=== PATIENT | female | born 1995 | race Caucasian/White ===

== ENCOUNTER 2020-11-07 20:41 | Observation (INO) | payer MEDICAID ==
[2020-11-07] MEDS ORDERED: ZIPRASIDONE 20 MG INJ IM ONE ×2 (21:00→21:03)
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
[2020-11-07 21:08] LABS: BASOPHILS % (AUTO) 1 % (0-1); EOSINOPHILS % (AUTO) 3 % (1-7); LYMPHOCYTES % (AUTO) 29 % (22-44); MD NO; MEAN CORPUSCULAR HEMOGLOBIN 26.8 pg (27.0-34.8); MEAN CORPUSCULAR HGB CONC 33.1 g/dL (32.4-35.8); MEAN PLATELET VOLUME 8.2 fL (7.4-10.4); MONOCYTES % (AUTO) 6 % (2-9); NEUTROPHILS % (AUTO) 61 % (42-75); PLATELET COUNT 249 x10^3/uL (130-400); RED BLOOD COUNT 5.76 x10^6/uL (3.82-5.3); RED CELL DISTRIBUTION WIDTH 14.2 % (9.6-15.2)
[2020-11-07 21:15] LABS: HCG UR SG 1.027 (1.003-1.030)
[2020-11-07 21:16] LABS: ALBUMIN 4.2 g/dL (3.4-5.0); ANION GAP 7 mmol/L (5-15); CALCIUM 9.4 mg/dL (8.5-10.1); CHLORIDE 110 mmol/L (98-107); CREATININE 0.88 mg/dL (0.55-1.02); SALICYLATE LEVEL 1.7 mg/dL (2.8-20.0)
[2020-11-07 21:27] LABS: AMPHETAMINE SCREEN, URINE Negative (Negative); BARBITURATE SCREEN, URINE Negative (Negative); BENZODIAZEPINE SCREEN, URINE Negative (Negative); CANNABINOID SCREEN, URINE Positive (Negative); COCAINE SCREEN, URINE Negative (Negative); METHADONE SCREEN, URINE Negative (Negative); OPIATE SCREEN, URINE Negative (Negative)
[2020-11-07] MEDS ORDERED: PLEASE ENTER HEIGHT AND WEIGHT MC SCH (21:30)
[2020-11-07] MEDS ORDERED: PLEASE ENTER ALLERGIES MC SCH (21:30)
--- NOTE | 2020-11-07 21:30 | NUR ---
[place] and juice provided.
--- NOTE | 2020-11-07 22:02 | NUR ---
Patient sleeping in [facility]. Respirations even and unlabored. Room secured and sitter outside.
--- NOTE | 2020-11-07 22:36 | NUR ---
[facility] called to look into patient.
--- NOTE | 2020-11-07 23:44 | NUR ---
report from elisabet womack Patient roused to voice. Alert/oriented. Denies si/hi/external stimuli ERP to bedside to eval Patient still energetic/loud. but re-directable
--- NOTE | 2020-11-08 00:29 | NUR ---
[facility] UNABLE TO TAKE PATIENTS INSURANCE. PACKET FAXED TO [employer], [employer], AND [facility] PATIENT HAS MEDICAID HPN.
--- NOTE | 2020-11-08 01:08 | NUR ---
With reassessment -patient fast asleep even and unlabored chest rise noted sitter within direct line of site
--- NOTE | 2020-11-08 05:05 | NUR ---
Report from YOHAN Najera. Pt sleeping in view of sitter, visible chest rise and fall. 1 bag of belongings in psych locker.
--- NOTE | 2020-11-08 06:46 | NUR ---
Recived report from Rhonda ALMANZAR. Pt resting in bed with eyes closed, symetrical chest rise and fall, NADN. Sitter outside of room.
[2020-11-08] MEDS ORDERED: NICOTINE 14MG/24 HR PATCH.TD24 ONE (08:29)
[2020-11-08] MEDS ORDERED: ACETAMINOPHEN 500 MG TABLET ONE (08:29)
[2020-11-08] MEDS ORDERED: NICOTINE 14MG/24 HR PATCH.TD24 TD ONE (08:30)
[2020-11-08] MEDS ORDERED: ACETAMINOPHEN 500 MG TABLET PO ONE (08:30)
[2020-11-08 08:45] VITALS: BP 101/69
--- NOTE | 2020-11-08 09:05 | NUR ---
MEDS GIVEN PER EMAR. VITALS DONE. PT COOPERATIVE. PT YELLING, AGREES TO TO LOWER HER VOICE.
--- NOTE | 2020-11-08 09:20 | NUR ---
Pt sitting up in bed, hapily enjoying TV
--- NOTE | 2020-11-08 09:39 | NUR ---
Pt ate 50% of breakfast tray, provided frosted flakes and paper spoon as requested
--- NOTE | 2020-11-08 09:55 | NUR ---
Lenny from psych at [facility] to evaluate pt
--- NOTE | 2020-11-08 10:33 | NUR ---
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
--- NOTE | 2020-11-08 11:50 | NUR ---
Pt provided raudel, very excited stating "ooo that's my food!"
== END 2020-11-08 13:19 | disposition home or self-care (01) ==
LOC: ED 21:55 → EDIP 23:19 → UNDOADMOB 23:26 → UNDODISOB 11-08 13:19
PROVIDERS: ADMIT Student in an Organized Health Care Education/Training Program; ATTEND Student in an Organized Health Care Education/Training Program
DX: F12.950 Cannabis use, unspecified with psychotic disorder with delusions (principal); F30.9 Manic episode, unspecified; F23 Brief psychotic disorder; G93.9 Disorder of brain, unspecified; Z87.820 Personal history of traumatic brain injury; Z79.899 Other long term (current) drug therapy
CPT/HCPCS: 36415; 80048; 80299; 80307; 80320; 80329; 81025; 82040; 85025; 96372; 99284; G0378; J3486; G0480